=== PATIENT | female | born 1960 | race Caucasian/White ===

== ENCOUNTER 2017-05-10 16:03 | Emergency (ER) | payer OTHER ==
[2017-05-10 16:08] VITALS: TEMP 97.9
--- NOTE | 2017-05-10 16:33 | EDPHY ---
H & P Smoking Status: Former smoker Time Seen by Provider: 05/10/17 16:17 HPI/ROS: CHIEF COMPLAINT: Right wrist injury HISTORY OF PRESENT ILLNESS: 57-year-old female presents to the emergency department by private vehicle complaining of injury to her right wrist. The patient was at work and was running up a flight of stairs and tripped and fell injuring her right wrist. She is right-hand dominant. She has pain especially with range of motion. She denies hitting her head or losing consciousness. Denies any other trauma or injury. ROS: Denies numbness or tingling in her fingers, pain in her right elbow or shoulder. Denies symptoms in the left upper extremity. (Saira Thomas) Past Medical/Surgical History: Negative (Saira Thomas) Social History: (Saira Thomas) Physical Exam: On examination the patient has no obvious deformity noted to the right wrist. No obvious swelling. Pain with palpation especially over the distal radius and slightly over the distal ulna. She has swelling over the anatomic snuffbox with mild pain with palpation in the anatomic snuffbox. No obvious rotational deformities noted. She is able to fully supinate however this does cause pain. Radial and ulnar deviation of the right wrist also causes discomfort. Full extension of her right elbow. Nontender to palpate in the right humerus or right shoulder. No abrasion or puncture wound. Normal sensation to light touch with normal 2 point discrimination. Strong radial pulse at the right wrist. (Saira Thomas) Constitutional: Initial Vital Signs Temperature (C) 36.6 C 05/10/17 16:05 Heart Rate 64 05/10/17 16:05 Respiratory Rate 16 05/10/17 16:05 Blood Pressure 120/81 H 05/10/17 16:05 O2 Sat (%) 98 05/10/17 16:05 O2 Delivery Mode Room Air Allergies/Adverse Reactions: No Known Allergies Allergy (Unverified 05/10/17 16:05) Home Medications: Medication Instructions Recorded NK [No Known Home Meds] 05/10/17 MDM/Departure - MDM Imaging: I viewed and interpreted images myself - MDM Procedures: Patient was placed in Ortho Glass thumb spica splint to the right wrist and examined post application in good placement with normal [employer]ER. (Saira Thomas) ED Course/Re-evaluation: 57-year-old female presents with right wrist injury. X-rays reveal nondisplaced distal radius fracture which is intra-articular. She was placed in splint and sling and given orthopedic referral. I did speak with [facility] physician who recommended that she follow-up with [facility] and orthopedic physician with Occupational [facility]. She was given on-call orthopedic surgeon. (Saira Thomas) The patient was evaluated and managed by the Physician Encapsulator. My co- signature indicates that I have reviewed this chart and I agree with the findings and plan of care as documented. I am the secondary supervising physician. (Kaylynn Concepcion) - Depart Disposition: Home, Routine, Self-Care Clinical Impression: Fracture of right distal radius Qualifiers: Encounter type: initial encounter Fracture type: closed Fracture morphology: unspecified fracture morphology Qualified Code(s): S52.501A - Unspecified fracture of the lower end of right radius, initial encounter for closed fracture Condition: Good Instructions: Wrist Fracture in Adults (ED) Additional Instructions: Ibuprofen 600mg every 8hours for pain as directed. Keep splint and keep it dry. Ice and elevate to help reduce pain and swelling. Referrals: Aurelio Nieves MD [Medical Doctor] - 2-3 days without fail (On-call orthopedic surgeon)
[2017-05-10 17:11] VITALS: BP 127/81; PULSE 63; RESP 15; O2SAT 96
== END 2017-05-10 17:11 | disposition home or self-care (01) ==
DX: S52.501A Unspecified fracture of the lower end of right radius, initial encounter for closed fracture (principal); Z87.891 Personal history of nicotine dependence; W10.9XXA Fall (on) (from) unspecified stairs and steps, initial encounter; Y99.0 Civilian activity done for income or pay; Y93.89 Activity, other specified